=== PATIENT | female | born 1950 | race Caucasian/White ===

== ENCOUNTER → 2023-06-26 | Outpatient (CLI) | payer MEDICARE, OTHER ==
--- NOTE | 2023-06-30 08:55 | NM ---
EXAMINATION TYPE: NM DatScan Brain SPECT DATE OF EXAM: 06/26/2023 COMPARISON: NONE CLINICAL INDICATION: Female, 73 years old with history of G25.0ESSENTIAL TREMOR, F43.10POST-TRAUMATIC STRESS; TECHNIQUE: 10 drops of Lugol's solution was administered 1 hour prior to injection as a thyroid bloc roverto agent. After the administration of 4.7 mCi I-123 Ioflupane DaTscan. Images obtained [address] injection[address] SPECT images of the brain were acquired with axial and coronal reconstructions. FINDINGS: There is significant increased background activity and blunted bilateral activity in the corpora stri stewart. IMPRESSION: Abnormal findings which can be seen with Parkinson's disease or a parkinsonian syndrome.
== END | disposition home or self-care (01) ==
LOC: RADNMMAIN 10:25
PROVIDERS: ATTEND Psychiatry & Neurology Neurology
DX: F43.10 Post-traumatic stress disorder, unspecified (principal); G25.0 Essential tremor
CPT/HCPCS: 78803; A9584

== ENCOUNTER → 2023-09-09 | Outpatient (CLI) | payer MEDICARE, OTHER ==
--- NOTE | 2023-09-09 12:25 | MR ---
EXAMINATION TYPE: MR brain wo/w con DATE OF EXAM: 09/09/2023 12:13 PM COMPARISON: NONE HISTORY: Unable to finish sentences x6 months, forgetful, CONTRAST: Patient received 10 mL intravenous Gadavist gadolinium contrast. Multiplanar and multispin-echo imaging of the brain was performed . Pre and post contrast enhanced i mages are obtained. The ventricles, basal cisterns and sulci overlying the cerebral convexities are mildly enlarged. There is evidence of mild periventricular white matter ischemic demyelination. Remote deep white matter insults are also noted. No acute edema is seen on diffusion weighted imaging. There is no evidence for midline shift or mass effect. Acute intracranial hemorrhage or extra-axial collection is not evident. No enhancing lesions are seen. The paranasal sinuses and mastoid air cells are well-aerated. IMPRESSION: Age-related atrophic and chronic small vessel ischemic change. No acute intracranial process at this time. No enhancing lesions are seen.
== END | disposition home or self-care (01) ==
LOC: RADMRIMAIN 11:13
PROVIDERS: ATTEND Psychiatry & Neurology Neurology
DX: I67.82 Cerebral ischemia (principal); I67.9 Cerebrovascular disease, unspecified
CPT/HCPCS: 70553; A9585